=== PATIENT | male | born 1995 | race Caucasian/White ===

== ENCOUNTER 2020-10-05 01:01 | Emergency (ER) | payer OTHER, SELFPAY ==
[2020-10-05 01:07] VITALS: BP 134/87; PULSE 84; RESP 16; TEMP 38.3; O2SAT 100
--- NOTE | 2020-10-05 02:08 | ED.URI ---
HPI - URI/Sore Throat General Chief Complaint: Upper Respiratory Infection Stated Complaint: covid symptoms, difficulty breathing. Time Seen by Provider: 10/05/20 01:13 History of Present Illness HPI Narrative: Patient is a 25-year-old male who presents ER with febrile illness. Reports their last 3 days has been having fevers and night sweats. He has been also having chills. He has been increasingly more fatigued. She denies he felt so fatigued he felt like he cannot get up off the couch to walk. Reports he has been having some inguinal lymphadenopathy that has decreased in size over the last 24 hours, no urinary symptoms. No penile discharge or testicular pain. Reports he is not at risk for STI. 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 He has had a runny nose with occasional cough. Occasionally feels short of breath but is not persistent. Related Data Allergies Allergy/AdvReac Type Severity Reaction Status Date / Time No Known Allergies Allergy Unverified 12/24/17 18:41 Review of Systems Review of Systems: All systems reviewed & are unremarkable except as noted in HPI and below Constitutional: Constitutional: Reports chills, Reports fatigue, Reports fever(s) and Reports weakness ENT: Reports nasal congestion and Reports sore throat Cardiovascular: Cardiovascular: Denies chest pain and Denies radiating jaw, neck or arm pain Respiratory: Respiratory: Reports cough, Reports dyspnea and Denies wheezing Gastrointestinal: Gastrointestinal: Denies abdominal pain, Denies nausea and Denies vomiting Genitourinary: Genitourinary: Denies dysuria, Denies penile discharge, Denies testicular pain and Denies urinary frequency Musculoskeletal: Musculoskeletal: Reports myalgias PMFSH Past Medical History Medical History (Updated 10/05/20 @ 03:18 by Celestino Cerna MD) Healthy adult male Surgical History Surgical History (Updated 10/05/20 @ 02:13 by Celestino Cerna MD) No history of previous surgery Social History Social History (Updated 10/05/20 @ 02:13 by Celestino Cerna MD) Substance use type: marijuana Gender identity (if verbalized by the patient): Male Exam Narrative: Exam Narrative: GENERAL: Well-appearing, well-nourished, and in no acute distress. HEAD: Normocephalic, atraumatic. CHEST: Clear to auscultation. No respiratory distress. HEART: Regular rate and rhythm. Normal peripheral pulses. ABDOMEN: Soft, nontender, nondistended. 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 EXTREMITIES: Normal range of motion. No edema. SKIN: Warm, dry, no rash. NEURO: Alert and oriented x3. Course Course Emergency Course: Patient swab for Covid. He will stay in isolation until he has either found to be negative or has been cleared by the health department. Vital Signs Vital signs: Vital Signs Temperature 101 F H 10/05/20 01:07 Pulse Rate 84 10/05/20 01:07 Respiratory Rate 16 10/05/20 01:07 Blood Pressure 134/87 10/05/20 01:07 Pulse Oximetry 100 10/05/20 01:07 Temperature 101 F H 10/05/20 01:07 Pulse Rate 84 10/05/20 01:07 Respiratory Rate 16 10/05/20 01:07 Blood Pressure 134/87 10/05/20 01:07 Pulse Oximetry 100 10/05/20 01:07 MDM - URI/Sore Throat Lab Data Labs: Lab Results 10/05/20 Range/Units 02:03 SARS-CoV-2 RNA (RT-PCR) Pending Discharge Plan Discharge Clinical Impression: Viral infection, Person under investigation for COVID-19 Patient Disposition: Home, Self-Care Condition: Stable Instructions: Viral Syndrome (ED), COVID-19 (Coronavirus Disease 2019) (ED) Additional Instructions: Return the ER if you cannot breathe, you lose consciousness, you have chest pain or shortness of breath, you have additional concerns. Your Covid results should be available in 24 hours. Remain in self-isolation until cleared by the health department
[2020-10-05] MEDS: ACETAMINOPHEN 500 MG TABLET 1000 MG PO (02:09)
[2020-10-05 03:25] VITALS: BP 124/79; PULSE 78; RESP 16; TEMP 36.7; O2SAT 99
[2020-10-05 22:42] LABS: SARS-CoV-2 RNA PCR Negative
== END 2020-10-05 03:26 | disposition home or self-care (01) ==
PROVIDERS: Emergency Provider Emergency Medicine
DX: B34.9 Viral infection, unspecified (principal); Z20.828 Contact with and (suspected) exposure to other viral communicable diseases
CPT/HCPCS: 87635; 99283; A9270; C9803; U0003